=== PATIENT | female | born 1985 | race Caucasian/White ===

== ENCOUNTER 2023-02-01 13:25 | Emergency (ER) | payer MEDICAID, OTHER ==
[~2023-02-01] VITALS: Ht 172.7 cm; Wt 68.7 kg
[~2023-02-01 13:25] MED LIST: PREN1TAB71 OR
[2023-02-01] MEDS ORDERED: KETOROLAC TROMETH 60MG/2ML VIAL IM ONE (17:15)
[2023-02-01 18:05] VITALS: BP 117/71; PULSE 72; RESP 17; TEMP 98.6; O2SAT 98
[2023-02-01] MEDS ORDERED: IBUP-1454 PO (18:46)
[2023-02-01] MEDS ORDERED: CYCL-839 PO (18:46)
== END 2023-02-01 19:08 | disposition home or self-care (01) ==
LOC: ER 13:25
DX: M54.12 Radiculopathy, cervical region (principal); M62.838 Other muscle spasm; F15.90 Other stimulant use, unspecified, uncomplicated; Z87.891 Personal history of nicotine dependence; Z88.8 Allergy status to other drugs, medicaments and biological substances; Z79.899 Other long term (current) drug therapy
CPT/HCPCS: 72040; 96372; 99283; J1885; 93005